=== PATIENT | female | born 1970 | race Caucasian/White ===

== ENCOUNTER 2020-02-05 07:21 | Outpatient (CLI) | payer BC, OTHER ==
[2020-02-05 18:00] LABS: #Basophils 0.1 thou/uL (0.0-0.2); #Eosinphils 0.1 thou/uL (0.0-0.7); #Lymphocytes 1.8 thou/uL (1.20-3.40); #Monocytes 0.4 thou/uL (0.11-0.59); #Neutrophils 3.5 thou/uL (1.40-6.50); %Basophils 0.9 % (0.0-1.0); %Eosinophils 2.5 % (0.0-10.0); %Lymphocytes 30.7 % (21.0-51.0); %Monocytes 6.7 % (0.0-10.0); %Neutrophils 59.2 % (42.0-75.0); Hemoglobin 13.6 g/dL (12.0-16.0); Mean Corpuscular HGB CONC 32.8 g/dL (32.0-36.0); Mean Corpuscular Hemoglobin 31.7 pg (27.0-31.0); Mean Corpuscular Volume 96.7 fL (78.0-98.0); Mean Platelet Volume 8.8 fL (7.4-10.4); Platelet Count 187 thou/uL (130-400); RBC Distribution Width 11.2 % (11.5-14.5); Red Blood Cell (RBC) Count 4.28 mill/uL (4.20-5.40); White Blood Cell (WBC) Count 5.9 thou/uL (4.8-10.8)
[2020-02-05 18:09] LABS: Bacteria/HPF None Seen HPF (None Seen); Bilirubin Negative (Negative); Blood, Urine Trace (Negative); Clarity Clear (Clear); Glucose, Urine (Dipstick) Normal (Negative); Ketone, Urine Negative (Negative); Leukocyte Negative Leu/uL (Negative); Nitrite Negative (Negative); Protein, Urine (Dipstick) Negative (Neg-Trace); RBC/HPF 0-3 HPF (0-3); Specific Gravity, Urine 1.017 (1.002-1.036); Squamous Epithelial 0-3 HPF (0-3); Urobilinogen Normal mg/dL (Less than 2); WBC/HPF 0-3 HPF (0-3)
[2020-02-06 12:30] LABS: SARS-CoV-2 MS2 Positive; SARS-CoV-2 N Gene Negative; SARS-CoV-2 S Gene Negative; SARS-CoV-2 by NAA Not Detected (NotDetected); SARS-CoV-2 orf1ab Negative
== END 2020-02-05 07:22 | disposition home or self-care (01) ==
LOC: LABBT 07:21
PROVIDERS: ATTEND Orthopaedic Surgery Hand Surgery
DX: Z01.812 Encounter for preprocedural laboratory examination (principal); Z20.828 Contact with and (suspected) exposure to other viral communicable diseases; M65.4 Radial styloid tenosynovitis [de Quervain]
CPT/HCPCS: 81001; 85025; 87635; U0003

== ENCOUNTER 2020-02-08 07:01 | Day surgery (SDC) | payer BC ==
[2020-02-06 11:52] VITALS: BMI 18.8
[2020-02-08] MEDS ORDERED: Bupivacaine PF 0.5% 30 ML VIAL ONE (08:01)
[2020-02-08] MEDS ORDERED: Sodium Chloride 0.9% 10 ML ONE (08:02)
[2020-02-08] MEDS ORDERED: Bacitracin Zinc Ointment 30 gm TUBE ONE (08:02)
[2020-02-08] MEDS ORDERED: Fentanyl 100 MCG/2 ML VIAL ONE (08:08)
[2020-02-08] MEDS ORDERED: Midazolam HCl 2 mg/2 ml Vial ONE (08:08)
[2020-02-08] MEDS ORDERED: Ketamine 50 MG/ML (10ML VIAL) ONE (08:08)
[2020-02-08] MEDS ORDERED: Propofol 500 MG/50 ML VIAL ONE (08:09)
[2020-02-08] MEDS ORDERED: Ketorolac Tromethamine 30 MG/ML VIAL ONE (10:04)
--- NOTE | 2020-02-11 13:23 | OP ---
DATE OF PROCEDURE: 02/08/2020 PREOPERATIVE DIAGNOSES: 1. Left first dorsal compartment tenosynovitis. 2. Left first de Quervain's extensive tenovaginitis. POSTOPERATIVE DIAGNOSES: 1. Left first dorsal compartment tenosynovitis. 2. Left first de Quervain's extensive tenovaginitis. FINDINGS: 1. Very tight retinaculum of first dorsal compartment. 2. Separate extensor pollicis brevis compartment. 3. Three sleeves of abductor pollicis longus. SPECIMENS: Sent to the lab, milan. TOURNIQUET TIME: 14 minutes. ESTIMATED BLOOD LOSS: Less than 10 mL. INJECTION: Yes, 20 mL of 0.5% Marcaine without epinephrine, 10 before the procedure and 10 after the wound was closed. PROCEDURES PERFORMED: 1. Left first dorsal compartment release. 2. Left extensor pollicis brevis and abductor pollicis longus radical tenosynovectomy, all within the same compartment extensor. DESCRIPTION OF PROCEDURE: After successful general endotracheal anesthesia, the limb was prepped and draped. The patient had failed conservative treatment to resolve the problem to include injection, ultrasound phonophoresis, steroids, anti-inflammatories, and bracing. We then had obtained consent, the patient got preoperative antibiotics, and then went to the operating room, where she underwent general anesthesia. After a time-out was done and prepped and draped complete, the limb was exsanguinated, tourniquet was inflated to 250 mmHg pressure, then we outlined incision that was 2 cm and in zigzag centered over the prominence of the first dorsal compartment. We carried the incision through skin and subcutaneous tissue. We dissected down sharply with tenotomy scissors and then bluntly the superficial radial nerve from its crossing over very thick retinaculum at the first dorsal compartment. We released the retinaculum at the dorsal central third junction. Underneath, there was very thick tenosynovium. We found a separate extensor compartment for the extensor pollicis brevis, which we released with a [place] blade. We then lifted all tendons up and they all had thick tenosynovium, so radical extensor tenosynovectomy performed with tenotomy scissors, carefully involving the extensor pollicis longus and abductor pollicis brevis, preserving all radial nerve branches. We released the back into the bed. There was no subluxation. We placed 5 mL of Celestone in this area, released the tourniquet, and obtained hemostasis. We closed the wound with interrupted 4-0 nylon after a running 4-0 Monocryl subcutaneous closure. Bulky dressing was applied just after given final 10 mL of 0.5% Marcaine without epinephrine injection periincisionally at around the incision with no evidence of operative anesthetic complication. Small splint was applied, thumb spica. Job ID: [id number]
== END 2020-02-08 10:15 | disposition home or self-care (01) ==
LOC: SDC 07:01
PROVIDERS: ATTEND Orthopaedic Surgery Hand Surgery
PROC: 0LN60ZZ Release Left Lower Arm and Wrist Tendon, Open Approach (ICD-10-PCS; principal; 2020-02-08)
DX: M65.4 Radial styloid tenosynovitis [de Quervain] (principal); M65.842 Other synovitis and tenosynovitis, left hand; I10 Essential (primary) hypertension; Z79.899 Other long term (current) drug therapy
CPT/HCPCS: 88305; J0690; J1885; J2250; J2704; J3010; J3490; S0020